=== PATIENT | male | born 1980 | race Caucasian/White ===

== ENCOUNTER → 2017-09-03 | Outpatient (CLI) | payer OTHER ==
[~2017-09-03] MED LIST: PANTOPRAZOLE SO40 MG PO; [UNRECOGNIZED DRUG - OTHER] PO; [UNRECOGNIZED DRUG - OTHER] PO
--- NOTE | 2017-09-03 13:13 | Diagnostic Imaging Report ---
PROCEDURE: Frontal and lateral views of the chest. COMPARISON: Patients [facility], , CHEST 2 VIEWS, 06/04/2016, 17:50. INDICATIONS: INFECTION, RULE OUT FLUIDS FINDINGS: Lines/tubes: None. Lungs: The lungs are well inflated and clear. There is no evidence of pneumonia or pulmonary edema. Pleura: There is no pleural effusion or pneumothorax. Heart and mediastinum: Cardiac silhouette is unremarkable. Pulmonary vasculature is normal. Stable mild rightward displacement of the trachea at the level of the aortic arch, which has a normal appearance Bones: No acute bony abnormality. IMPRESSION: 1. No acute cardiopulmonary abnormalities. Jersey Billingsley M.D. Dictated by: Jersey Billingsley M.D. on 09/03/2017 at 13:17 Electronically approved by: Jersey Billingsley M.D. on 09/03/2017 at 13:17
== END ==
LOC: RAD 12:44
PROVIDERS: ATTEND Family Medicine
DX: R07.9 Chest pain, unspecified (principal)
CPT/HCPCS: 71046

== ENCOUNTER 2017-11-03 11:27 | Emergency (ER) | payer OTHER ==
[~2017-11-03] VITALS: Ht 165.1 cm; Wt 83.9 kg
[2017-11-03] MEDS ORDERED: KETOROLAC TROMETHAMINE 30 MG/ML VIAL IV STA (12:24)
[2017-11-03] MEDS ORDERED: SODIUM CHLORIDE 0.9% 1000ML 1,000 ML IV SCH (12:30)
--- NOTE | 2017-11-03 14:04 | Diagnostic Imaging Report ---
EXAMINATION: CT of the abdomen and pelvis without contrast. TECHNIQUE: Spiral CT images of the abdomen and pelvis were performed from the lung bases to the lesser trochanters. No intravenous contrast was given per renal stone protocol. Coronal and sagittal reformatted images were obtained. COMPARISON: None. CLINICAL HISTORY:Bilateral upper abdominal and flank pain for 2 months DISCUSSION: ABSENCE OF INTRAVENOUS CONTRAST DECREASES SENSITIVITY FOR DETECTION OF FOCAL LESIONS AND VASCULAR PATHOLOGY. ABDOMEN/PELVIS: LOWER THORAX: 5 mm noncalcified pulmonary nodule in the left lower lobe (series 2, image 12). 2 mm noncalcified pulmonary nodule in the right lower lobe (series 2, image 12). HEPATOBILIARY: No focal hepatic lesions. No intra or extrahepatic biliary ductal dilation. GALLBLADDER: No radio-opaque stones or sludge. No wall thickening. SPLEEN: No splenomegaly. PANCREAS: No focal masses or ductal dilatation. ADRENALS: No adrenal nodules. KIDNEYS/URETERS: No renal or ureteral calculi, hydronephrosis or obstruction. No renal contour abnormalities or significant perinephric stranding PELVIC ORGANS/BLADDER: Bladder is decompressed but grossly unremarkable. Prostate is unremarkable. PERITONEUM/RETROPERITONEUM: No free air or fluid. LYMPH NODES: No intra-abdominal,retroperitoneal, pelvic or inguinal lymphadenopathy. VESSELS: Unremarkable for noncontrast exam. GI TRACT: No bowel dilation or evidence of obstruction. Appendix is well identified and normal in caliber. No pericolonic inflammatory changes. Stomach is unremarkable. BONES AND SOFT TISSUES: No aggressive lytic lesions. Small bilateral fat-containing umbilical hernias IMPRESSION: 1. No acute abdominopelvic abnormalities. No renal or ureteral calculi, hydronephrosis or obstruction. 2. 2 and 5 mm pulmonary nodules, as described. If the patient is low risk, no further follow-up is indicated. If the patient is high risk, consider noncontrast chest CT in 12 months to document stability, per Fleischner Society 2017 guidelines. . Signed by: Dr. Jersey Billingsley M.D. on 11/03/2017 2:00 PM
[2017-11-03] MEDS ORDERED: CYCLOBENZAPRINE HCL 10 MG TAB PO ONE (15:45)
[2017-11-03 16:51] VITALS: BP 144/85
== END 2017-11-03 17:06 | disposition home or self-care (01) ==
LOC: FSED 11:27
DX: M54.5 Low back pain (principal); S39.012A Strain of muscle, fascia and tendon of lower back, initial encounter; R10.11 Right upper quadrant pain; R07.89 Other chest pain; R94.5 Abnormal results of liver function studies; M62.830 Muscle spasm of back; E78.5 Hyperlipidemia, unspecified; R91.8 Other nonspecific abnormal finding of lung field
CPT/HCPCS: 74176; 80048; 80053; 80076; 81003; 84484; 85025; 99284; J1885; 93005

== ENCOUNTER → 2018-01-26 | Outpatient (CLI) | payer OTHER ==
[~2018-01-26] MED LIST changes: +DEXILANT60 MG PO
--- NOTE | 2018-01-26 13:16 | Diagnostic Imaging Report ---
Exam: Right shoulder series; 2 views dated 01/26/2018 at 11:04 AM History: Pain Comparison: None available Findings: There is no evidence of a dislocation or fracture. No joint space narrowing. Soft tissues are normal. Adequate rotation noted with internal rotation. Impression: Normal right shoulder series. Signed by: Dr. Leandro Thomas DO on 01/26/2018 1:13 PM
== END ==
LOC: RAD 10:42
PROVIDERS: ATTEND Family Medicine
DX: M25.511 Pain in right shoulder (principal); M75.41 Impingement syndrome of right shoulder

== ENCOUNTER → 2018-02-24 | Day surgery (SDC) | payer OTHER ==
[~2018-02-24] MED LIST changes: +FENTANYL CITRATE/PF 100MCG/2 ML INJ ONE; +MIDAZOLAM HCL 2 MG/2 ML VIAL ONE; +PROPOFOL IV EMULSION 10 MG/ML 50 ML VIAL ONE
--- OUTSIDE RECORDS SUMMARY | 2018-02-24 12:53 | XMS REPORT | Encounter Summary ---
Author Organization Unknown Address [address] [place] [id number] Phone [phone] Reason for Visit Medical Complaint Instructions 1. Upper respiratory infection upper respiratory infection (cold): care instructions Bromfed DM 2 mg-30 mg-10 mg/5 mL syrup 2. Feeling feverish rapid flu (A+B) 3. Pain in throat sore throat: care instructions rapid strep group A, throat Discussion Note: None recorded. Plan of Care Patient Instructions take bromfed as needed. it can cause drowsiness. do not drive will on this medication. follow up pcp Reminders Provider Appointments None recorded. Lab Rapid Flu (A+B) 03/03/2017 [facility] Rapid Strep Group a, Throat 03/03/2017 [facility] Referral None recorded. Procedures None recorded. Surgeries None recorded. Imaging None recorded. Medications Name Start Date Bromfed DM 2 mg-30 mg-10 mg/5 mL syrup Take 10 mL every 4 hours by oral route as needed. simvastatin 10 mg tablet Medications Administered None recorded. Vitals Height Weight BMI Blood Pressure 5 ft 5 in 192 lbs 32 kg/m2 120/80 mm[Hg] Lab Results Date Name Specimen Result Interpretation Description Value Range Status Address Rapid Strep Group a, Throat Result negative [facility]: [address] [place] [address] Swab Location Left and Right tonsillar pillars [facility]: [address] [place] [address] Rapid Flu (A+B) Influenza a negative [facility]: [address] [place] [address] Influenza B negative [facility]: [address] [place] [address] Allergies Code Code System Name Reaction Severity Status Onset NKDA Problems Name Status Onset Date Source Acute Sinusitis Active Encounter Acute Bronchitis Active Encounter Contact Dermatitis Due to Plants, Except Food Active Encounter Procedures None recorded. Vaccine List None recorded. Social History Smoking Status Never Smoker Past Encounters 03/03/2017 Upper Respiratory Infection; Feeling Feverish; Pain in Throat [facility]: [address] [place] [address], Ph. History of Present Illness Ppunk-Wkkyhykgic-Wpipqad Reported By: Patient HPI: Location: head/sinuses, throat, chest. Quality: productive cough, sore throat, nasal/sinus congestion. Duration: 3days. Severity: moderate. Onset/Timing: gradual. Context: no sick contacts, no foreign travel, non-smoker. Modifying factors: OTC medication. Associated Symptoms: no shortness of breath, no wheezing, no change in number of pillows needed to sleep at night, no sweats, no significant weight gain, no significant weight loss, no morning cough, no vomiting, no diarrhea, no rash, no nausea, no fever, no headache, green sputum, sore throat, fever, muscle aches Review of Systems:ROS as noted in the HPI Review of Systems Basic Reported By: Patient Physical Exam Adult Basic, Adult Male Complete Reported By: Patient Constitutional: General Appearance: healthy-appearing, well-nourished, well-developed. Level of Distress: NAD. Ambulation: ambulating normally Psychiatric: Mental Status: active and alert Eyes: Lids and Conjunctivae: non-injected, no discharge Usd-Pxjw-Rinao-Throat: Ears: no lesions on external ear, no outer ear tenderness, EACs clear, TMs clear, TM mobility normal. Hearing: no hearing loss. Nose: no lesions on external nose, nasal discharge--purulent; congestion. Lips, Teeth, and Gums: no mouth or lip ulcers. Oropharynx: moist mucous membranes, no erythema, no exudates, tonsils not enlarged Neck: Neck: trachea midline. Lymph Nodes: no cervical LAD Lungs: Respiratory effort: no dyspnea, no tachypnea, no use of accessory muscles, no intercostal retractions. Auscultation: breath sounds normal, good air movement Cardiovascular: Heart Auscultation: RRR, no murmurs
--- OUTSIDE RECORDS SUMMARY | 2018-02-24 12:53 | XMS REPORT | Continuity of Care Document ---
Author Author [facility] Address Unknown Phone Unavailable Problems Problem Status Onset Date Classification Date Reported Comments Source Upper respiratory infection 03/03/2017 Diagnosis 03/03/2017 [facility] Feeling feverish 03/03/2017 Diagnosis 03/03/2017 [facility] Pain in throat 03/03/2017 Diagnosis 03/03/2017 [facility] Acute Sinusitis Problem 03/03/2017 [facility] Acute Bronchitis Problem 03/03/2017 [facility] Contact Dermatitis Due to Plants, Except Food Problem 03/03/2017 [facility] Medications Medication Details Route Status Patient Instructions Ordering Provider Order Date Source Brompheniramine Maleate 0.4 MG/ML / Dextromethorphan Hydrobromide 2 MG/ML / Pseudoephedrine Hydrochloride 6 MG/ML Oral Solution [Bromfed DM] Bromfed DM 2 mg-30 mg-10 mg/5 mL syrup Take 10 mL every 4 hours by oral route as needed. Active [facility] Simvastatin 10 MG Oral Tablet simvastatin 10 mg tablet Active [facility] Pantoprazole Sodium (Protonix) 40 Mg Tablet. Daily Active [facility] Essenials Daily Active [facility] [place] Daily [facility] Allergies, Adverse Reactions, Alerts Substance Category Reaction Severity Reaction type Status Date Reported Comments Source Immunizations Immunization Date Given Site Status Last Updated Comments Source Results Order Name Results Value Reference Range Date Interpretation Comments Source RESULT negative 03/03/2017 [facility] SWAB LOCATION Left and Right tonsillar pillars 03/03/2017 [facility] Influenza A negative 03/03/2017 [facility] Influenza B negative 03/03/2017 [facility] Vital Signs Vital Sign Value Date Comments Source Diastolic (mm Hg) 80 03/03/2017 [facility] Height 65 03/03/2017 [facility] Systolic (mm Hg) 120 03/03/2017 [facility] Weight 192 03/03/2017 [facility] Encounters Location Location Details Encounter Type Encounter Number Reason For Visit Attending Provider ADM Date DC Date Status Source Registered Clinic [id number] JOSE RAFAEL URBANO MD 02/18/2017 [facility] [place] - [id number] Tyson Anand, [facility]: [address] [facility], [place] [address], Ph. [id number] Tyson Anand 03/03/2017 [facility] Registered Clinic [id number] JOSE RAFAEL URBANO MD 09/03/2017 [facility] Departed Emergency Room [id number] ESTRELLA BEJARANO MD 11/03/2017 11/03/2017 [facility] Procedures Procedure Code Date Perfomer Comments Source X-ray of chest, two views [id number] 09/03/2017 [facility] Testicular ultrasound [id number] 02/18/2017 [facility] Dup-scan artl carlos abdl/pel/scrot&/R[place] [id number] 02/18/2017 [facility]
[2018-02-24 15:20] VITALS: BP 131/82
--- NOTE | 2018-02-24 15:41 | Operative Report ---
DATE OF PROCEDURE: February 24, 2018 PROCEDURE PERFORMED: Esophagogastroduodenoscopy with esophageal dilatation and biopsies. DOCTOR SAID TO CANCEL DICTATION Job#: [id number] RI
--- NOTE | 2018-02-24 15:43 | Operative Report ---
DATE OF PROCEDURE: February 24, 2018 REFERRING PHYSICIAN: Dr. Yassine Calle. PROCEDURE PERFORMED: Esophagogastroduodenoscopy with biopsies and esophageal dilatation. INDICATIONS FOR ESOPHAGOGASTRODUODENOSCOPY: Dysphagia, heartburn. MEDICATION: Patient was done under MAC. Please see anesthesiologist's note. PROCEDURE: With the patient in the left lateral decubitus position, the flexible fiberoptic Olympus gastroscope was introduced into the esophagus under direct visualization without any difficulty. There was some patchy erythema noted in the distal esophagus. A minute tongue of velvety red mucosa was noted to extend proximally from the GE junction, and that was biopsied to rule out Guallpa's. The scope was then advanced with ease into the stomach after dilating the esophagus to a size 52-Thai Lutz. Mucosa overlying the antrum and the body revealed some patchy erythema and mild to moderate edema, and biopsies were obtained and sent to stain for H. pylori. Pylorus appeared to be of normal contour and shape, was intubated with ease, and the scope was advanced all the way to the 2nd portion of the duodenum. The scope was then withdrawn slowly. Mucosa overlying the proximal 2nd portion and the duodenal bulb appeared to be within normal limits. The scope was then withdrawn back into the stomach and retroflexed, and the mucosa overlying the fundus and the cardia appeared to be within normal limits. The scope was then straightened out. The stomach was decompressed. The scope was subsequently withdrawn. Patient tolerated the procedure well. IMPRESSION: 1. Distal esophagitis, mild. 2. Rule out Guallpa's esophagus. 3. Esophagus dilated to a size 52-Thai Lutz. 4. Gastritis biopsied. Biopsies sent to stain for H. pylori. PLAN: Follow up histology. Continue Dexilant 60 mg 1 p.o. q.a.m. a.c. Job#: [id number] EV cc:YASSINE CALLE MD
== END | disposition home or self-care (01) ==
LOC: OR 12:50
PROVIDERS: ATTEND Internal Medicine Gastroenterology
DX: K20.8 Other esophagitis (principal); K29.60 Other gastritis without bleeding; K21.9 Gastro-esophageal reflux disease without esophagitis; I10 Essential (primary) hypertension; E78.5 Hyperlipidemia, unspecified; Z68.32 Body mass index [BMI] 32.0-32.9, adult
CPT/HCPCS: 43239; 43450; J2250

== ENCOUNTER → 2018-11-11 | Outpatient (CLI) | payer OTHER ==
[~2018-11-11] MED LIST changes: -FENTANYL CITRATE/PF 100MCG/2 ML INJ ONE; -MIDAZOLAM HCL 2 MG/2 ML VIAL ONE; -PROPOFOL IV EMULSION 10 MG/ML 50 ML VIAL ONE
--- NOTE | 2018-11-11 09:52 | Diagnostic Imaging Report ---
EXAMINATION: CHEST 2 VIEWS INDICATION: Shortness of breath COMPARISON: Shoulder radiograph 01/26/2018 FINDINGS: LINES/TUBES:None LUNGS:The lungs are well-inflated. No focal consolidation or pulmonary edema. PLEURA:No pleural effusion or pneumothorax. MEDIASTINUM:The cardiomediastinal silhouette appears normal in size and shape. BONES/SOFT TISSUES:No acute osseous injury. ABDOMEN:No free air under the diaphragm. IMPRESSION: No focal pneumonia or pulmonary edema. Signed by: Lisbet Edwards MD on 11/11/2018 9:49 AM
== END ==
LOC: RAD 09:02
PROVIDERS: ATTEND Family Medicine
DX: R06.02 Shortness of breath (principal)
CPT/HCPCS: 71046

== ENCOUNTER → 2018-11-25 | Outpatient (CLI) | payer OTHER ==
--- NOTE | 2018-11-25 14:21 | Diagnostic Imaging Report ---
CT of the chest, without contrast, 11/25/2018. History: Follow-up of pulmonary nodules. Comparison: CT abdomen 11/03/2017. Technique: Multidetector CT scanning of the chest was performed from the level of the apices to the upper abdomen without contrast. Coronal and sagittal multiplanar reformations were obtained. RADIATION DOSE: Total DLP: 469 mGy*cm Dose modulation, iterative reconstruction, and/or weight based adjustment of the mA/kV was utilized to reduce the radiation dose to as low as reasonably achievable. Discussion: Evaluation is limited without IV contrast. Chest: The heart, aorta, and pulmonary vessels are normal in size. The thyroid is unremarkable. There is no evidence of adenopathy. 2 mm right lower lobe and 5 mm left lower lobe nodule are unchanged. There is no evidence of consolidation or pleural effusion. Limited evaluation of the upper abdomen shows normal adrenal glands. Bones and soft tissues: No acute abnormality. Mild degenerative changes are noted in the thoracic spine. IMPRESSION: No acute abnormality. Stable small pulmonary nodules. No further follow-up recommended. Signed by: James Dupont on 11/25/2018 2:17 PM
== END ==
LOC: CT 12:01
PROVIDERS: ATTEND Family Medicine
DX: R91.8 Other nonspecific abnormal finding of lung field (principal)
CPT/HCPCS: 71250

== ENCOUNTER 2020-05-22 19:14 | Emergency (ER) | payer OTHER ==
[~2020-05-22] VITALS: Ht 165.1 cm; Wt 83.9 kg
[2020-05-22 19:56] LABS: BASOPHILS % 0.3 % (0.0-1.0); EOSINOPHILS # (AUTO) 0.1 (0.0-0.4); EOSINOPHILS % 1.9 % (0.0-6.0); HEMATOCRIT 42.8 % (38.2-49.6); HEMOGLOBIN 15.2 g/dL (14.0-18.0); LYMPHOCYTES # (AUTO) 2.1 (1.0-3.2); LYMPHOCYTES % 35.8 % (18.0-39.1); MEAN CORPUSCULAR HEMOGLOBIN 31.3 pg (28-32); MEAN CORPUSCULAR HGB CONC 35.5 g/dL (31-35); MEAN CORPUSCULAR VOLUME 88.2 fL (81-99); MONOCYTES # (AUTO) 0.4 (0.2-0.8); MONOCYTES % 7.3 % (4.4-11.3); NEUTROPHILS # (AUTO) 3.2 (2.1-6.9); NEUTROPHILS % 54.2 % (38.7-80.0); PLATELET COUNT 255 x10e3/uL (140-360); RED BLOOD COUNT 4.85 x10e6/uL (4.3-5.7); RED CELL DISTRIBUTION WIDTH 12.3 % (11.7-14.4)
[2020-05-22 20:09] LABS: INR 0.82; PROTHROMBIN TIME 11.7 seconds (11.9-14.5)
[2020-05-22 20:10] LABS: PARTIAL THROMBOPLASTIN TIME 29.2 seconds (23.8-35.5)
[2020-05-22 20:16] LABS: ALANINE AMINOTRANSFERASE 49 IU/L (0-55); ALBUMIN 4.2 g/dL (3.5-5.0); ALBUMIN/GLOBULIN RATIO 1.2 (0.8-2.0); ALKALINE PHOSPHATASE 70 IU/L (40-150); ANION GAP 16.7 mmol/L (8-16); BLOOD UREA NITROGEN 15 mg/dL (7-26); BUN/CREATININE RATIO 18 (6-25); CALCIUM 9.2 mg/dL (8.4-10.2); CARBON DIOXIDE 25 mmol/L (22-29); CHLORIDE 101 mmol/L (98-107); CREATININE, SERUM 0.82 mg/dL (0.72-1.25); EST GLOMERULAR FILTRATION RATE > 60 ML/MIN (60-); GLUCOSE 130 mg/dL (74-118); POTASSIUM 3.7 mmol/L (3.5-5.1); SODIUM 139 mmol/L (136-145)
[2020-05-22] MEDS ORDERED: SODIUM CHLORIDE 0.9% 50ML 50 ML ONE (21:09)
[2020-05-22] MEDS ORDERED: IOPAMIDOL 370 MG/ML 200 ML INFUS..BTL INJ ONE (21:09)
[2020-05-22 23:56] VITALS: BP 130/81
== END 2020-05-22 23:57 | disposition home or self-care (01) ==
LOC: ER 19:30
DX: R04.2 Hemoptysis (principal); E78.5 Hyperlipidemia, unspecified; K21.9 Gastro-esophageal reflux disease without esophagitis; R74.8 Abnormal levels of other serum enzymes
CPT/HCPCS: 36415; 71046; 71260; 80053; 85025; 85379; 85610; 85730; 99284; Q9967

== ENCOUNTER 2021-04-22 10:27 | Emergency (ER) | payer OTHER ==
[~2021-04-22] VITALS: Ht 165.1 cm; Wt 92.1 kg
[2021-04-22] MEDS ORDERED: KETOROLAC TROMETHAMINE 30 MG/ML VIAL IV STA (10:56)
[2021-04-22] MEDS ORDERED: ONDANSETRON HCL INJ 2MG/ML 2ML 2 MG/ML VIAL IV STA (10:56)
[2021-04-22] MEDS ORDERED: ACETAMINOPHEN 325 MG TAB PO ONE (11:00)
[2021-04-22] MEDS ORDERED: Morphine 4mg Syringe 4 MG/ML INJ IV ONE (11:00)
[2021-04-22] MEDS ORDERED: KETOROLAC TROMETHAMINE 30 MG/ML VIAL ONE (11:14)
[2021-04-22] MEDS ORDERED: ONDANSETRON HCL INJ 2MG/ML 2ML 2 MG/ML VIAL ONE (11:14)
[2021-04-22] MEDS ORDERED: SODIUM CHLORIDE 0.9% 1000ML 1,000 ML ONE ×2 (11:15→13:07)
[2021-04-22] MEDS ORDERED: Morphine 4mg Syringe 4 MG/ML INJ ONE (11:15)
[2021-04-22] MEDS ORDERED: SODIUM CHLORIDE 0.9% 1000ML 1,000 ML IV STA ×2 (11:35→12:19)
[2021-04-22] MEDS ORDERED: CIPRO500 MG PO (15:04)
[2021-04-22] MEDS ORDERED: ONDANSETRON ODT4 MG PO ×2 (15:04)
[2021-04-22 15:16] VITALS: BP 110/65
== END 2021-04-22 15:24 | disposition home or self-care (01) ==
LOC: FSED 10:55
DX: R11.2 Nausea with vomiting, unspecified (principal); R10.11 Right upper quadrant pain; R19.7 Diarrhea, unspecified; R16.0 Hepatomegaly, not elsewhere classified; K76.0 Fatty (change of) liver, not elsewhere classified; K40.20 Bilateral inguinal hernia, without obstruction or gangrene, not specified as recurrent
CPT/HCPCS: 74176; 76705; 80053; 81003; 85025; 96374; 96375; 96376; 99284; J1885; J2270; J2405; J7030